=== PATIENT | female | born 1970 | race Caucasian/White ===

== ENCOUNTER 2017-09-08 05:26 | Emergency (ER) | payer SELFPAY ==
[~2017-09-08] VITALS: Ht 165.1 cm; Wt 76.8 kg
[2017-09-08 05:27] VITALS: BP 114/78
[2017-09-08] MEDS ORDERED: DIPH,PERTUSS(ACELL),TET VAC/PF 0.5 ML IM-VACC ONE ×2 (06:00→06:06)
[2017-09-08] MEDS ORDERED: SILVER SULF. CRM 1% , 25GM TP ONE (06:00)
[2017-09-08] MEDS ORDERED: SILVER SULF. CRM 1% , 25GM ONE (06:06)
== END 2017-09-08 06:22 | disposition home or self-care (01) ==
LOC: ED 06:19
DX: T23.122A Burn of first degree of single left finger (nail) except thumb, initial encounter (principal); X19.XXXA Contact with other heat and hot substances, initial encounter; Y93.G3 Activity, cooking and baking; Y92.098 Other place in other non-institutional residence as the place of occurrence of the external cause; Y99.8 Other external cause status
CPT/HCPCS: 16020; 90715; 96372; 99284

== ENCOUNTER 2018-02-17 08:33 | Emergency (ER) | payer OTHER ==
[~2018-02-17] VITALS: Ht 165.1 cm; Wt 76.0 kg
[2018-02-17 08:38] VITALS: BP 115/74
== END 2018-02-17 09:06 | disposition home or self-care (01) ==
LOC: ED 08:45
DX: G89.29 Other chronic pain (principal); M25.561 Pain in right knee
CPT/HCPCS: 99281

== ENCOUNTER 2019-02-19 10:19 | Emergency (ER) | payer SELFPAY ==
[~2019-02-19] VITALS: Ht 165.1 cm; Wt 75.0 kg
[2019-02-19 10:21] VITALS: BP 110/67
--- NOTE | 2019-02-19 10:28 | NUR ---
PT HERE WITH C/O COUGH X 5 DAYS. PT STATES NON-PRODUCTIVE. PT STATES HAS BEEN HAVING URIS THIS YEAR. PT AAO X 4, NAD, ROOM AIR, CALL LIGHT WITHIN REACH.
--- NOTE | 2019-02-19 10:29 | NUR ---
PA AT BEDSIDE.
--- NOTE | 2019-02-19 11:24 | NUR ---
PT AMBULATORY TO XRAY WITH OPEN HEARTH MELTER.
[2019-02-19 11:26] LABS: RAPID INFLUENZA A Negative (Negative); RAPID INFLUENZA B Negative (Negative)
--- NOTE | 2019-02-19 11:31 | NUR ---
PT BACK FROM XRAY.
--- NOTE | 2019-02-19 11:41 | NUR ---
ALL RESULTS BACK AT THIS TIME, CHART UP FOR RECHECK. PA AT BEDSIDE FOR POC DISCUSSION.
--- NOTE | 2019-02-19 11:44 | NUR ---
Patient/Caregiver given discharge instructions and they have confirmed that they understand the instructions. Patient ambulatory with steady gait.
== END 2019-02-19 11:54 | disposition home or self-care (01) ==
LOC: ED 11:51
DX: J06.9 Acute upper respiratory infection, unspecified (principal)
CPT/HCPCS: 71046; 87400; 99284

== ENCOUNTER 2019-02-26 14:01 | Emergency (ER) | payer SELFPAY ==
[~2019-02-26] VITALS: Ht 165.1 cm; Wt 76.9 kg
[2019-02-26 14:07] VITALS: BP 110/67
== END 2019-02-26 14:34 | disposition home or self-care (01) ==
LOC: ED 14:15
DX: J00 Acute nasopharyngitis [common cold] (principal)
CPT/HCPCS: 99282

== ENCOUNTER 2019-05-16 11:06 | Emergency (ER) | payer OTHER ==
[~2019-05-16] VITALS: Ht 165.1 cm; Wt 76.0 kg
[2019-05-16 11:27] VITALS: BP 127/77
--- NOTE | 2019-05-16 13:00 | NUR ---
COUGH AND RUNNY NOSE. AWAITING XRAY
[2019-05-16 13:12] LABS: RAPID INFLUENZA A Negative (Negative); RAPID INFLUENZA B Negative (Negative)
--- NOTE | 2019-05-16 13:55 | NUR ---
Patient/Caregiver given discharge instructions and they have confirmed that they understand the instructions. Patient ambulatory with steady gait. PT LEFT WITH ALL PERSONAL BELONGINGS.
== END 2019-05-16 13:56 | disposition home or self-care (01) ==
LOC: ED 13:50
DX: B34.9 Viral infection, unspecified (principal); M79.10 Myalgia, unspecified site; Z98.51 Tubal ligation status
CPT/HCPCS: 71046; 87400; 99284

== ENCOUNTER 2019-06-09 16:45 | Emergency (ER) | payer OTHER ==
[~2019-06-09] VITALS: Ht 165.1 cm; Wt 74.9 kg
[2019-06-09 16:49] VITALS: BP 115/85
[2019-06-09 18:19] LABS: RAPID INFLUENZA A Negative (Negative); RAPID INFLUENZA B Negative (Negative)
--- NOTE | 2019-06-09 18:44 | NUR ---
Patient/Caregiver given discharge instructions and they have confirmed that they understand the instructions. Patient ambulatory with steady gait. PT LEFT WITH ALL PERSONAL BELONGINGS.
== END 2019-06-09 18:46 | disposition home or self-care (01) ==
LOC: ED 18:40
DX: B34.9 Viral infection, unspecified (principal); R51 Headache
CPT/HCPCS: 87400; 99283

== ENCOUNTER 2020-03-13 16:25 | Emergency (ER) | payer MEDICAID, OTHER ==
[~2020-03-13] VITALS: Ht 165.1 cm; Wt 76.2 kg
[2020-03-13 19:20] VITALS: BP 110/80
== END 2020-03-13 19:26 | disposition home or self-care (01) ==
LOC: ED 19:00
DX: F41.1 Generalized anxiety disorder (principal); Z76.0 Encounter for issue of repeat prescription
CPT/HCPCS: 99281

== ENCOUNTER 2020-03-14 13:29 | Emergency (ER) | payer MEDICAID ==
[~2020-03-14] VITALS: Ht 165.1 cm; Wt 75.0 kg
--- NOTE | 2020-03-14 13:59 | NUR ---
NO ANSWER X1
--- NOTE | 2020-03-14 15:25 | NUR ---
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
--- NOTE | 2020-03-14 15:37 | NUR ---
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
[2020-03-14 16:16] VITALS: BP 119/75
--- NOTE | 2020-03-14 16:16 | NUR ---
ASSUMED CARE OF PATIENT. SHE IS HERE FOR WORSENING ANXIETY AND DIFFICULTY SLEEPING. SHE HAS BEEN EVALUATED AND IS RESTING COMFORTABLY. CONTINUOUS SP02 AND CYCLING VITALS. NO FAMILY AT BEDSIDE. PT STATES "IT WAS NICE TO TALK TO SOMEONE" CALL LIGHT WITHIN REACH AND NO ADDITIONAL NEEDS AT THIS TIME
[2020-03-14] MEDS ORDERED: NEOSPORIN OINT. PKT 1 PACKET ONE (16:39)
--- NOTE | 2020-03-14 16:47 | NUR ---
Patient/Caregiver given discharge instructions and they have confirmed that they understand the instructions. Patient ambulatory with steady gait.
== END 2020-03-14 16:49 | disposition home or self-care (01) ==
LOC: ED 15:54
DX: L03.011 Cellulitis of right finger (principal); G47.00 Insomnia, unspecified; L98.9 Disorder of the skin and subcutaneous tissue, unspecified; F41.9 Anxiety disorder, unspecified; Z76.0 Encounter for issue of repeat prescription; Z98.51 Tubal ligation status
CPT/HCPCS: 99283

== ENCOUNTER 2020-04-28 05:59 | Emergency (ER) | payer MEDICAID ==
[~2020-04-28] VITALS: Ht 165.1 cm; Wt 75.5 kg
[2020-04-28] MEDS ORDERED: MAALOX/HYOSCYAMINE/LIDOCAINE 45 ML BTL ONE (06:21)
[2020-04-28] MEDS ORDERED: ONDANSETRON ODT 4 MG ONE (06:21)
[2020-04-28] MEDS ORDERED: MAALOX/HYOSCYAMINE/LIDOCAINE 45 ML BTL PO ONE (06:30)
[2020-04-28] MEDS ORDERED: ONDANSETRON ODT 4 MG PO ONE (06:30)
[2020-04-28 06:43] LABS: BASOPHILS % (AUTO) 1 % (0-1); EOSINOPHILS % (AUTO) 4 % (1-7); LYMPHOCYTES % (AUTO) 20 % (22-44); MEAN CORPUSCULAR HGB CONC 33.4 g/dL (32.4-35.8); MEAN PLATELET VOLUME 7.6 fL (7.4-10.4); MONOCYTES % (AUTO) 6 % (2-9); NEUTROPHILS % (AUTO) 69 % (42-75); PLATELET COUNT 356 x10^3/uL (130-400); RED CELL DISTRIBUTION WIDTH 14.1 % (9.6-15.2)
[2020-04-28 06:44] LABS: MD NO
--- NOTE | 2020-04-28 06:50 | NUR ---
report to mindy mcdowell
[2020-04-28 06:56] LABS: ALANINE AMINOTRANSFERASE 25 U/L (12-78); ALBUMIN 3.7 g/dL (3.4-5.0); ANION GAP 5 mmol/L (5-15); CALCIUM 8.8 mg/dL (8.5-10.1); CHLORIDE 107 mmol/L (98-107); CREATININE 0.76 mg/dL (0.55-1.02)
[2020-04-28 06:58] LABS: ALKALINE PHOSPHATASE 134 U/L (45-117); BILIRUBIN,TOTAL 0.5 mg/dL (0.2-1.0); TOTAL PROTEIN 7.9 g/dL (6.4-8.2)
[2020-04-28 07:34] LABS: MICROSCOPIC INDICATED
[2020-04-28 07:35] LABS: HCG UR SG 1.029 (1.003-1.030)
[2020-04-28 08:00] VITALS: BP 105/70
== END 2020-04-28 08:33 | disposition home or self-care (01) ==
LOC: ED 06:07
DX: K80.20 Calculus of gallbladder without cholecystitis without obstruction (principal); N30.00 Acute cystitis without hematuria; R10.13 Epigastric pain; R11.2 Nausea with vomiting, unspecified; Z91.19 Patient's noncompliance with other medical treatment and regimen; Z98.51 Tubal ligation status
CPT/HCPCS: 36415; 76700; 80053; 81001; 81025; 83690; 85025; 87086; 99284; Q0162